=== PATIENT | female | born 1955 ===

== ENCOUNTER 2023-02-18 17:38 | Inpatient (IN) | payer MEDICARE, OTHER ==
[2023-02-18 19:17] VITALS: BMI 37.5
[2023-02-18] MEDS: Pregabalin 50 MG CAP PO SCH (21:48)
[2023-02-18] MEDS: Lisinopril 5 MG TAB PO SCH (21:48)
[2023-02-18] MEDS: Atorvastatin Calcium 40 MG TAB PO SCH (21:48)
[2023-02-18] MEDS: traZODone HCl 50 MG TAB PO PRN (21:49)
[2023-02-18] MEDS: Senokot S 8.6-50 MG TAB PO SCH (21:49)
[2023-02-18] MEDS: Melatonin 3 MG TAB PO PRN (21:49)
[2023-02-18 23:32] LABS: Troponin I 0.292 ng/mL (< 0.028)
[2023-02-19 05:04] LABS: #Basophils 0.1 thou/uL (0.0-0.2); #Eosinphils 0.1 thou/uL (0.0-0.7); #Monocytes 0.8 thou/uL (0.11-0.59); #Neutrophils 6.3 thou/uL (1.40-6.50); %Basophils 0.5 % (0.0-1.0); %Lymphocytes 31.8 % (21.0-51.0); %Monocytes 7.6 % (0.0-10.0); %Neutrophils 58.8 % (42.0-75.0); Hemoglobin 14.3 g/dL (12.0-16.0); Mean Corpuscular Hemoglobin 28.9 pg (27.0-31.0); Mean Corpuscular Volume 90.3 fl (78.0-98.0); Mean Platelet Volume 12.9 fL (7.4-10.4); Platelet Count 216 10x3/uL (130-400); RBC Distribution Width 14.8 % (11.5-14.5); Red Blood Cell (RBC) Count 4.95 mill/uL (4.20-5.40); White Blood Cell (WBC) Count 10.8 10x3/uL (4.8-10.8)
[2023-02-19 05:41] LABS: Anion Gap 11 mmol/L (10-20); BUN (Urea Nitrogen) 17 mg/dL (9.8-20.1); Calc. Creatinine Clearance 106 mL/min (70-130); Calcium 9.5 mg/dL (7.8-10.44); Carbon Dioxide 24 mmol/L (23-31); Cardiac Risk 3.1 (Less than 4.5); Chloride 110 mmol/L (98-107); Cholesterol 132 mg/dl (< 200 Desired); Estimated GFR 73; Glucose 81 mg/dL (80-115); HDL Cholesterol 42 mg/dL (>60 Neg Risk); LDL Cholesterol, Calculated 63 mg/dL; Potassium 3.8 mmol/L (3.5-5.1); Sodium 141 mmol/L (136-145); Triglycerides 135 mg/dL (Less than 150)
[2023-02-19 07:47] LABS: Troponin I 0.331 ng/mL (< 0.028)
[2023-02-19] MEDS: Senokot S 8.6-50 MG TAB PO SCH ×2 (08:42→20:59)
[2023-02-19] MEDS: Aspirin 81 mg Enteric Coated Tablet PO SCH (08:42)
[2023-02-19] MEDS: Pregabalin 50 MG CAP PO SCH ×3 (08:43→20:56)
[2023-02-19] MEDS: Escitalopram Oxalate 20 mg Tablet PO SCH (08:43)
[2023-02-19] MEDS: Lisinopril 5 MG TAB PO SCH ×2 (08:43→20:57)
[2023-02-19] MEDS ORDERED: Enoxaparin 120 MG/0.8 ML SYRINGE SC SCH (16:00)
[2023-02-19] MEDS: Melatonin 3 MG TAB PO PRN (20:59)
[2023-02-19] MEDS: Atorvastatin Calcium 40 MG TAB PO SCH (20:59)
[2023-02-19] MEDS: traZODone HCl 50 MG TAB PO PRN (20:59)
[2023-02-20 05:38] LABS: Critical Call Chem Troponin I RESULT DECREASING; Troponin I 0.234 ng/mL (< 0.028)
[2023-02-20] MEDS: Escitalopram Oxalate 20 mg Tablet PO SCH (05:54)
[2023-02-20] MEDS: Lisinopril 5 MG TAB PO SCH ×2 (05:54→22:11)
[2023-02-20] MEDS: Senokot S 8.6-50 MG TAB PO SCH ×2 (05:54→22:11)
[2023-02-20] MEDS: Pregabalin 50 MG CAP PO SCH ×3 (05:54→22:11)
[2023-02-20] MEDS: Aspirin 81 mg Enteric Coated Tablet PO SCH (05:54)
[2023-02-20] MEDS ORDERED: Iopamidol 370 76% 100 ML VIAL ONE (09:20)
[2023-02-20] MEDS ORDERED: Lidocaine 1% (PF) 30 ML VIAL ONE (14:14)
[2023-02-20] MEDS ORDERED: Sodium Chloride 0.9% 1,000 ML IV SCH (14:30)
[2023-02-20] MEDS ORDERED: Communication Order-Pharmacy FS SCH (14:30)
[2023-02-20] MEDS ORDERED: fentaNYL 50 mcg/mL 1 mL Vial ONE (14:59)
[2023-02-20] MEDS ORDERED: Midazolam HCl 2 mg/2 ml Vial ONE (14:59)
[2023-02-20] MEDS ORDERED: Nitroglycerin 0.4 MG TAB (25 Tab Bottle) SL PRN (15:33)
[2023-02-20] MEDS ORDERED: Sodium Chloride 0.9% 200 ML IV PRN (15:33)
[2023-02-20] MEDS ORDERED: Acetaminophen/Codeine 30-300mg Tablet PO PRN (15:33)
[2023-02-20] MEDS: Atorvastatin Calcium 40 MG TAB PO SCH (22:11)
[2023-02-20] MEDS: traZODone HCl 50 MG TAB PO PRN (22:11)
[2023-02-20] MEDS: Melatonin 3 MG TAB PO PRN (22:11)
[2023-02-21] MEDS: Senokot S 8.6-50 MG TAB PO SCH ×2 (07:51→07:58)
[2023-02-21] MEDS: Pregabalin 50 MG CAP PO SCH (07:53)
[2023-02-21] MEDS: Escitalopram Oxalate 20 mg Tablet PO SCH (07:54)
[2023-02-21] MEDS: Aspirin 81 mg Enteric Coated Tablet PO SCH (07:54)
[2023-02-21] MEDS: Lisinopril 5 MG TAB PO SCH (07:54)
[2023-02-21 12:11] VITALS: BP 108/57; TEMP 97.6
[2023-02-22] MEDS ORDERED: Nicotine 21 MG PATCH TD SCH (09:00)
== END 2023-02-21 12:55 | disposition home or self-care (01) | DRG 281 ==
LOC: 2SW 18:59 → OBSVTOIN 02-19 17:21
PROVIDERS: ADMIT Family Medicine; ATTEND Internal Medicine
PROC: 4A023N7 Measurement of Cardiac Sampling and Pressure, Left Heart, Percutaneous Approach (ICD-10-PCS; principal; 2023-02-19)
PROC: B2111ZZ Fluoroscopy of Multiple Coronary Arteries using Low Osmolar Contrast (ICD-10-PCS; 2023-02-19)
PROC: B2151ZZ Fluoroscopy of Left Heart using Low Osmolar Contrast (ICD-10-PCS; 2023-02-19)
DX: I10 Essential (primary) hypertension (principal); I21.A1 Myocardial infarction type 2; I42.9 Cardiomyopathy, unspecified; R00.1 Bradycardia, unspecified; F41.9 Anxiety disorder, unspecified; R00.0 Tachycardia, unspecified; F39 Unspecified mood [affective] disorder; E78.5 Hyperlipidemia, unspecified; F19.10 Other psychoactive substance abuse, uncomplicated; G47.33 Obstructive sleep apnea (adult) (pediatric); F10.90 Alcohol use, unspecified, uncomplicated; I25.10 Atherosclerotic heart disease of native coronary artery without angina pectoris; I25.2 Old myocardial infarction; F17.210 Nicotine dependence, cigarettes, uncomplicated; M19.90 Unspecified osteoarthritis, unspecified site; Z79.82 Long term (current) use of aspirin; Z71.6 Tobacco abuse counseling; Z95.5 Presence of coronary angioplasty implant and graft; Z88.0 Allergy status to penicillin; Z79.899 Other long term (current) drug therapy; Z98.890 Other specified postprocedural states; Z90.89 Acquired absence of other organs; Z90.710 Acquired absence of both cervix and uterus; Z82.49 Family history of ischemic heart disease and other diseases of the circulatory system; Z87.01 Personal history of pneumonia (recurrent)
CPT/HCPCS: 36415; 80048; 80061; 84443; 84484; 85025; 93458; 93798; 96372; 99152; C1769; G0378; J1650; J2001; J2250; J3010; Q9967